=== PATIENT | female | born 1970 | race American Indian/Alaskan Native ===

== ENCOUNTER 2021-04-26 11:05 | Emergency (ER) | payer SELFPAY ==
--- NOTE | 2021-04-26 13:36 | Emergency Department Report ---
ED Female HPI - General Chief complaint: Abdominal Pain Stated complaint: VAGINAL BLEEDING Time Seen by Provider: 04/26/21 13:30 Source: EMS Mode of arrival: Ambulatory Limitations: No Limitations - History of Present Illness Initial comments: 51-year-old -[place] female presents to the emergency room complaining of 3 weeks of vaginal bleeding with dizziness this morning chest tightness that just lasts a second body aches, shaking. She states that she had neck and head pain. She does not have a primary care provider. She denies any trauma. Only medication she takes is a One a day 50+ vitamin and sometimes iron supplement. She reports her bleeding started approximately 04/06/2021. She has no known drug allergies. MD Complaint: vaginal bleeding - Related Data Previous Rx's Medication Instructions Recorded Last Taken Type Ferrous Sulfate [Slow Fe 142 MG] 142 mg PO QDAY #30 tablet.er 04/26/21 Unknown Rx Allergies Allergy/AdvReac Type Severity Reaction Status Date / Time No Known Allergies Allergy Verified 04/26/21 11:11 ED Review of Systems ROS: Stated complaint: VAGINAL BLEEDING Other details as noted in HPI ED Past Medical Hx - Medications Home Medications: Home Medications Medication Instructions Recorded Confirmed Last Taken Type Ferrous Sulfate [Slow Fe 142 MG] 142 mg PO QDAY #30 tablet.er 04/26/21 Unknown Rx ED Physical Exam - General Limitations: No Limitations General appearance: alert, in no apparent distress - Head Head exam: Present: atraumatic, normocephalic - Expanded Eye Exam Expanded Sclera/Conjunctival: Normal Inspection: Bilateral (Pale conjunctiva ) - ENT ENT exam: Present: mucous membranes dry, normal external ear exam - Neck Neck exam: Present: normal inspection, full ROM - Respiratory Respiratory exam: Absent: respiratory distress, accessory muscle use - Cardiovascular Cardiovascular Exam: Present: regular rate - GI/Abdominal GI/Abdominal exam: Present: soft. Absent: distended ED Course Vital Signs 04/26/21 11:13 Temperature 99.1 F Pulse Rate 95 H Respiratory 16 Rate Blood Pressure 155/77 [Right] O2 Sat by Pulse 99 Oximetry ED Medical Decision Making - Lab Data Result diagrams: 04/26/21 13:50 04/26/21 13:50 - Radiology Data Radiology results: report reviewed [facility] [address] [place] [address] XRay Report Signed Patient: ALESHA SHIN MR#: [id number] 30 : 1970 Acct:[id number] Age/Sex: 51 / F ADM Date: 04/26/21 Loc: ED Attending Dr: Ordering Physician: RAMON DE LEON Date of Service: 04/26/21 Procedure(s): XR chest routine 2V Accession Number(s): [id number] cc: RAMON DE LEON Fluoro Time In Minutes: CHEST 2 VIEWS INDICATION / CLINICAL INFORMATION: sob, cough and rales. COMPARISON: None available. FINDINGS: SUPPORT DEVICES: None. HEART / MEDIASTINUM: No significant abnormality. LUNGS / PLEURA: No significant pulmonary or pleural abnormality. No pneumothorax. ADDITIONAL FINDINGS: No significant additional findings. IMPRESSION: 1. No acute findings. Signer Name: Alberto Haines DO Signed: 04/26/2021 1:55 PM Workstation Name: [id number] Transcribed By: DOUG Dictated By: ALBERTO HAINES DO Electronically Authenticated By: ALBERTO HAINES DO Signed Date/Time: 04/26/211354 DD/ 54 TD/TT: - Medical Decision Making 51-year-old -[place] female presents to the emergency room complaining of 3 weeks of vaginal bleeding with dizziness this morning chest tightness that just lasts a second body aches, shaking. She states that she had neck and head pain. She does not have a primary care provider. She denies any trauma. Only me dication she takes is a One a day 50+ vitamin and sometimes iron supplement. She reports her bleeding started approximately 04/06/2021. She has no known drug allergies. CBC CMP type and screen urinalysis urine test INT ordered. CBC shows anemia but not needing to have a blood transfusion. Patient is instructed to start Slow Fe iron take a stool softener. Increase her fluid intake and very important to follow-up with an [facility]. Chest x-ray is negative for any acute findings. - Differential Diagnosis Anemia, dysmenorrhea, Critical care attestation.: If time is entered above; I have spent that time in minutes in the direct care of this critically ill patient, excluding procedure time. ED Disposition Clinical Impression: Abnormal vaginal bleeding, Anemia Disposition: HOME / SELF CARE / HOMELESS Is pt being admited?: No Does the pt Need Aspirin: No Condition: Stable Instructions: Abdominal Pain (ED), Abnormal Uterine Bleeding Additional Instructions: Blood shows severe anemic but not needing a blood transfusion. I would like for you to follow-up with an [facility] for further evaluation. Please start taking Slow Fe iron pills continue with your [id number] multivitamin. Be sure to increase your water intake. You may need to take a stool softener while taking the iron. Prescriptions: Ferrous Sulfate [Slow Fe 142 MG] 142 mg PO QDAY #30 tablet.er Referrals: [facility] [Primary Care Provider] - 3-5 Days [facility] [Provider Group] - 3-5 Days [facility] [Provider Group] - 3-5 Days Time of Disposition: 16:21
--- NOTE | 2021-04-26 14:00 | XRay Report ---
CHEST 2 VIEWS INDICATION / CLINICAL INFORMATION: sob, cough and rales. COMPARISON: None available. FINDINGS: SUPPORT DEVICES: None. HEART / MEDIASTINUM: No significant abnormality. LUNGS / PLEURA: No significant pulmonary or pleural abnormality. No pneumothorax. ADDITIONAL FINDINGS: No significant additional findings. IMPRESSION: 1. No acute findings. Signer Name: Alberto Haines DO Signed: 04/26/2021 1:55 PM Workstation Name: [id number]
[2021-04-26 14:11] LABS: Basophils % (Auto) 0.3 % (0.0-1.8); Hematocrit 28.3 % (30.3-42.9); Lymphocytes # (Auto) 1.2 K/mm3 (1.2-5.4); Lymphocytes % (Auto) 12.5 % (13.4-35.0); Mean Corpuscular HGB Conc 32 % (30-34); Mean Corpuscular Volume 92 fl (79-97); Monocytes # (Auto) 0.4 K/mm3 (0.0-0.8); Monocytes % (Auto) 4.4 % (0.0-7.3); Platelet Count 416 K/mm3 (140-440); Red Blood Count 3.07 M/mm3 (3.65-5.03)
[2021-04-26 14:31] LABS: Alanine Aminotransferase 11 units/L (7-56); Albumin 4.6 g/dL (3.9-5); BUN/Creatinine Ratio 9; Blood Urea Nitrogen 7 mg/dL (7-17); Hemolysis Index 4
[2021-04-26 17:12] VITALS: BP 122/78
== END 2021-04-26 17:11 | disposition home or self-care (01) ==
LOC: ED 11:05
DX: D64.9 Anemia, unspecified (principal)
CPT/HCPCS: 36415; 71046; 80053; 84702; 85025; 86850; 86900; 86901; 99284